=== PATIENT | female | born 1965 | race Caucasian/White ===

== ENCOUNTER 2021-05-21 14:43 | Emergency (ER) | payer BC ==
[2021-05-21] MEDS ORDERED: Lidocaine 1% 30 ML SDV INJECT ONE (15:27)
[2021-05-21] MEDS ORDERED: Acetaminophen/HYDROcodone 325-5 MG Tab PO ONE (16:45)
--- NOTE | 2021-05-21 17:51 | EDM.PDOC ---
ED HPI GENERAL MEDICAL PROBLEM - General Chief Complaint: ENT Problem Stated Complaint: nose injury Time Seen by Provider: 05/21/21 15:00 Source of Information: Reports: Patient History Limitations: Reports: No Limitations - History of Present Illness INITIAL COMMENTS - FREE TEXT/NARRATIVE: Lindsay is a 56 year old female who presents to ER after a traumatic injury to her face. "feels like I broke my nose". Was out pushing branches from a tree while on her tractor. Pushed on the branch and it ricocheted back and hit her in the forehead and then the nose/upper lip. Denies loss of consciousness. Did not get ejected off of the tractor. No neck or head pain. Does have pain to her forehead, nose and tongue. No chest discomfort, shortness of breath, nausea/vomiting. No double or blurred vision. GCS 15. Onset: Today, Sudden Duration: Minutes:, Constant Location: Reports: Face Quality: Reports: Ache, Throbbing Severity: Severe Improves with: Reports: None Worsens with: Reports: None Associated Symptoms: Denies: Confusion, Chest Pain, Cough, cough w sputum, Headaches, Nausea/Vomiting, Shortness of Breath Nose Pain Score (Numeric/FACES): 10 - Related Data Allergies Allergy/AdvReac Type Severity Reaction Status Date / Time No Known Allergies Allergy Verified 05/21/21 14:45 Home Meds: Home Meds Hydroxychloroquine Sulfate [Plaquenil] 200 mg PO DAILY 05/21/21 [History] Lisinopril/Hydrochlorothiazide [Lisinopril-Hctz 10-12.5 mg Tab] 1 tab PO DAILY 05/21/21 [History] buPROPion HCL [Bupropion Xl] 300 mg PO DAILY 05/21/21 [History] Past Medical History Cardiovascular History: Reports: Hypertension Psychiatric History: Reports: Anxiety Social & Family History - Tobacco Use Tobacco Use Status *Q: Never Tobacco User Second Hand Smoke Exposure: No - Caffeine Use Caffeine Use: Reports: Soda - Recreational Drug Use Recreational Drug Use: No Review of Systems - Review of Systems Review Of Systems: See Below Constitutional: Denies: Weakness Eyes: Denies: Blindness, Blurred Vision, Decreased Acuity, Vision Change Ears: Denies: Dizziness, Pain Nose: Reports: Clots, Epistaxis, Pain Mouth/Throat: Reports: Bleeding, Tongue Swelling (tongue laceration). Denies: Throat Swelling Respiratory: Denies: Shortness of Breath, Cough Cardiovascular: Denies: Chest Pain GI/Abdominal: Denies: Abdominal Pain, Nausea, Vomiting Genitourinary: Reports: No Symptoms Musculoskeletal: Denies: Neck Pain Skin: Reports: Wound Neurological: Denies: Headache, Numbness, Syncope, Tingling, Trouble Speaking, Difficulty Walking, Weakness Psychiatric: Reports: No Symptoms ED EXAM, GENERAL - Physical Exam Exam: See Below Exam Limited By: No Limitations General Appearance: Alert, WD/WN, Mild Distress Eye Exam: Bilateral Eye: EOMI, PERRL Ears: Normal External Exam, Normal TMs Nose: Other (bilateral blood noted in nares, obvious depression to bridge of nose with laceration. ) Throat/Mouth: Normal Teeth, Other (Has V-shaped laceration to her upper lip, small puncture wound to inner lip. Tongue is split in a y-shape at the tip) Head: Normocephalic, Facial Swelling, Facial Tenderness, Other (bilateral bruising to eyes) Neck: Normal Inspection, Supple, Non-Tender, Full Range of Motion Respiratory/Chest: No Respiratory Distress, Lungs Clear, Normal Breath Sounds Cardiovascular: Regular Rate, Rhythm GI/Abdominal: Normal Bowel Sounds, Soft, Non-Tender Back Exam: Normal Inspection, Full Range of Motion Extremities: Normal Inspection, No Pedal Edema Neurological: Alert, Oriented, CN II-XII Intact, Normal Cognition, Normal Gait, Normal Reflexes, No Motor/Sensory Deficits Skin Exam: Wound/Incision ED TRAUMA PROCEDURES - Laceration/Wound Repair Face Lac/Wound Length In cm: 2.5 Appearance: Subcutaneous, Linear Anesthetic Type: Local Local Anesthesia - Lidocaine (Xylocaine): 1% Plain Local Anesthetic Volume: 3cc Skin Prep: Other (saf-clens) Exploration/Debridement/Repair: Wound Explored Closed With: Sutures Suture Size: 6-0 # of Sutures: 6 Suture Type: Nylon, Interrupted, Simple Tetanus Status Addressed: Yes Complications: No Nose Lac/Wound Length In cm: 1.5 Appearance: Subcutaneous, Linear Local Anesthesia - Lidocaine (Xylocaine): 1% Plain Local Anesthetic Volume: 3cc Skin Prep: Other (saf clens) Exploration/Debridement/Repair: Wound Explored Closed With: Sutures Suture Size: 6-0 # of Sutures: 4 Suture Type: Nylon, Interrupted, Simple Upper Mouth Lac/Wound Length In cm: 2 Appearance: Subcutaneous, Other (v-shaped) Anesthetic Type: Local Local Anesthesia - Lidocaine (Xylocaine): 1% Plain Local Anesthetic Volume: 3cc Skin Prep: Other (saf-clens) Exploration/Debridement/Repair: Wound Explored Closed With: Sutures Suture Size: 6-0 # of Sutures: 5 Suture Type: Nylon, Interrupted, Simple Mouth Lac/Wound Length In cm: 2 (tongue) Appearance: Subcutaneous, Stellate Local Anesthesia - Lidocaine (Xylocaine): 1% Plain Local Anesthetic Volume: 3cc Skin Prep: Saline Exploration/Debridement/Repair: Wound Explored Closed With: Sutures Suture Size: 6-0 # of Sutures: 5 Suture Type: Nylon, Interrupted, Simple Course - Vital Signs Last Recorded V/S: Last Vital Signs Temp 97.1 F 05/21/21 14:47 Pulse 115 H 05/21/21 14:47 Resp 16 05/21/21 14:47 BP 149/79 H 05/21/21 14:47 Pulse Ox 97 05/21/21 14:47 - Orders/Labs/Meds Orders: Active Orders 24 hr Category Date Time Status Cervical Spine wo Cont [CT] Stat Exams 05/21/21 16:43 Taken Head wo Cont [CT] Stat Exams 05/21/21 16:43 Taken Max Facial Sinus wo Cont [CT] Routine Exams 05/21/21 Taken Meds: Medications Discontinued Medications Generic Name Dose Route Start Last Admin Trade Name Freq PRN Reason Stop Dose Admin Hydrocodone Bitart/Acetaminophen 2 tab 05/21/21 16:45 05/21/21 16:57 Acetaminophen/Hydrocodone 325-5 Mg Tab PO 05/21/21 16:46 2 tab ONETIME ONE Administration Lidocaine HCl 0 ml 05/21/21 15:27 05/21/21 15:44 Lidocaine 1% 30 Ml Sdv INJECT 05/21/21 15:28 Not Given ONETIME ONE Lidocaine HCl Confirm 05/21/21 15:07 05/21/21 15:44 Lidocaine 1% 5 Ml Sdv Administered 05/21/21 15:08 Not Given Dose 10 ml .ROUTE .STK-MED ONE Lidocaine HCl 10 ml 05/21/21 15:44 05/21/21 15:49 Lidocaine 1% 5 Ml Sdv INJECT 05/21/21 15:45 10 ml ONETIME ONE Administration Lidocaine HCl 5 ml 05/21/21 16:02 05/21/21 16:57 Lidocaine 1% 5 Ml Sdv INJECT 05/21/21 16:03 5 ml ONETIME ONE Administration - Re-Assessments/Exams Free Text/Narrative Re-Assessment/Exam: 05/21/21 1640-Contacted [facility] due to facial fractures noted on CT. Spoke with Dr. Brennan. Recommended packing of nose if needed, follow up with ENT. Will start Augmentin. Advised to notify neurosurgeon in regards to frontal bones. 1700-Pain meds given 1800- CT scan done of head and neck read. Contacted [facility] after negative read of head and neck obtained. Advised of frontal bone fractures. He advised that nothing further needed to be done for the frontal bone fractures. patient informed. Departure - Departure Time of Disposition: 18:26 Disposition: Home, Self-Care 01 Condition: Fair Clinical Impression: Nasal bone fractures, Laceration of face, Fracture of frontal bone - Discharge Information *PRESCRIPTION DRUG MONITORING PROGRAM REVIEWED*: No *COPY OF PRESCRIPTION DRUG MONITORING REPORT IN PATIENT MARVIN: No Instructions: Nasal Fracture, [id number], Laceration Care, Adult, [id number] Referrals: PCP,None [Primary Care Provider] - (Follow up with primary care provider in 5-7 days for suture removal) Additional Instructions: 1. Ice to face frequently tonight 2. Triple antibiotic ointment to lacerations daily 3. Augmentin 875 mg twice a day for 10 days 4. Percocet 5/325- 1-2 tabs every 6 hours as needed for pain 5. We will contact ENT on Sunday in regards to follow up for fractures 6. Sutures out in 5-7 days 7. Call with any questions or concerns. Sepsis Event Note (ED) - Evaluation Sepsis Screening Result: No Definite Risk - Focused Exam Vital Signs: Vital Signs Temp Pulse Resp BP Pulse Ox 05/21/21 14:47 97.1 F 115 H 16 149/79 H 97 - My Orders Last 24 Hours: My Active Orders 05/21/21 Max Facial Sinus wo Cont [CT] Routine 05/21/21 16:43 Cervical Spine wo Cont [CT] Stat Head wo Cont [CT] Stat - Assessment/Plan Last 24 Hours: My Active Orders 05/21/21 Max Facial Sinus wo Cont [CT] Routine 05/21/21 16:43 Cervical Spine wo Cont [CT] Stat Head wo Cont [CT] Stat
[2021-05-21] MEDS ORDERED: Diphtheria,Pertussis(Acell),Tetanus Vaccine 0.5 ML Syringe IM ONE (18:14)
[2021-05-21] MEDS ORDERED: Take Home: Acetaminophen/oxyCODONE 325-5 MG, 2 Tab Pack PO ONE (18:15)
[2021-05-21] MEDS ORDERED: Take Home: Amoxicillin/Clavulanate K 875-125 MG Tab, 2 Tab Pack PO ONE (18:15)
[2021-05-21] MEDS ORDERED: Bacitracin/Neomycin/Polymyxin B Oint 0.9 GM U/D Packet TOP ONE (18:17)
== END 2021-05-21 19:10 | disposition home or self-care (01) ==
LOC: CC.ED 14:43
DX: S02.2XXA Fracture of nasal bones, initial encounter for closed fracture (principal); S02.0XXA Fracture of vault of skull, initial encounter for closed fracture; S01.512A Laceration without foreign body of oral cavity, initial encounter; I10 Essential (primary) hypertension; Z23 Encounter for immunization; Z79.899 Other long term (current) drug therapy; W22.8XXA Striking against or struck by other objects, initial encounter
CPT/HCPCS: 12014; 41250; 70450; 70486; 72125; 90471; 90715; 99283-25; A9270-GY